=== PATIENT | female | born 1975 | race African-American/Black ===

== ENCOUNTER 2017-12-15 09:35 | Inpatient (IN) | payer MEDICAID ==
[~2017-12-15] VITALS: Ht 149.9 cm; Wt 100.0 kg
[2017-12-15] MEDS ORDERED: SODIUM CHLORIDE 0.9% 1,000 ML IV ONE (09:47)
[2017-12-15 10:01] LABS: BASOPHILS % 1.3 % (0.0-2.0); EOSINOPHILS % 4.1 % (0.0-5.0); HEMATOCRIT. 43.2 % (36.0-48.0); HEMOGLOBIN. 14.5 g/dL (12.0-16.0); LYMPHOCYTES % 51.6 % (20.0-50.0); MEAN CORPUSCULAR HEMOGLOBIN 30.5 pg (28.0-32.0); MEAN CORPUSCULAR VOLUME 91.2 fL (81.0-99.0); MEAN PLATELET VOLUME 10.2 fl (7.4-10.4); MONOCYTES % 8.7 % (2.0-8.0); NEUTROPHILS % 34.3 % (40.0-76.0); PLATELET 220 x1000/uL (130-400); RED BLOOD CELL COUNT 4.74 mill/uL (4.2-5.4)
[2017-12-15 10:10] LABS: INR 0.9; PARTIAL THROMBOPLASTIN TIME 26.1 sec (23.4-31.0); PROTHROMBIN TIME 9.4 sec (9.1-11.1)
[2017-12-15 10:11] LABS: HCG SCREEN NEGATIVE
[2017-12-15 10:40] LABS: CHLORIDE 108 mEq/L (98-107); CREATINE KINASE 114 IU/L (26-192); LDL CHOLESTEROL 118 mg/dL (5-100)
[2017-12-15 10:41] LABS: ETHANOL BLOOD < 10 mg/dL
[2017-12-15] MEDS ORDERED: ASPIRIN 81MG TABLET PO ONE (10:45)
[2017-12-15] MEDS ORDERED: GADOBENATE DIMEGLUMINE 529 MG/ML 10ML IV ONE (11:31)
[2017-12-15] MEDS ORDERED: ONDANSETRON HCL 4MG/2ML INJ IV ONE (13:00)
[2017-12-15] MEDS ORDERED: MORPHINE SULFATE 4 MG/ML CPJ (NOT FOR IM USE) IV ONE (13:00)
[2017-12-15] MEDS ORDERED: GUAIFENESIN 200MG/10ML SUGAR FREE UDC PO PRN (15:30)
[2017-12-15] MEDS ORDERED: MAGNESIUM/ALUMINUM HYDROXIDE/SIMETHICONE 30ML UDC PO PRN (15:30)
[2017-12-15] MEDS ORDERED: CLONIDINE 0.1MG TABLET PO PRN (15:30)
[2017-12-15] MEDS ORDERED: DOCUSATE SODIUM 100MG CAPSULE PO PRN (15:30)
[2017-12-15] MEDS ORDERED: ACETAMINOPHEN 325MG TABLET PO PRN (15:30)
[2017-12-15] MEDS ORDERED: IPRATROPIUM/ALBUTEROL 0.5-3(2.5)MG/3ML NEB INH PRN (15:30)
[2017-12-15 16:00] VITALS: BP 141/97
[2017-12-15 16:55] VITALS: BP 141/97
[2017-12-15] MEDS: HYDROCODONE/ACETAMINOPHEN 5/325MG TABLET PO PRN ×2 (18:13→22:57)
[2017-12-15 20:00] VITALS: BP 120/64
[2017-12-15] MEDS ORDERED: ATORVASTATIN CALCIUM 40MG TABLET PO SCH (21:00)
[2017-12-16] VITALS: BP 141/78
[2017-12-16] MEDS: HYDROCODONE/ACETAMINOPHEN 5/325MG TABLET PO PRN (03:19)
[2017-12-16 06:35] LABS: BASOPHILS % 0.5 % (0.0-2.0); HEMATOCRIT. 40.2 % (36.0-48.0); HEMOGLOBIN. 13.4 g/dL (12.0-16.0); LYMPHOCYTES % 46.3 % (20.0-50.0); MEAN CORPUSCULAR HEMOGLOBIN 30.4 pg (28.0-32.0); MEAN CORPUSCULAR VOLUME 91.2 fL (81.0-99.0); MEAN PLATELET VOLUME 10.6 fl (7.4-10.4); MONOCYTES % 7.6 % (2.0-8.0); NEUTROPHILS % 42.6 % (40.0-76.0); PLATELET 187 x1000/uL (130-400); RED BLOOD CELL COUNT 4.41 mill/uL (4.2-5.4); RED CELL DISTRIBUTION WIDTH 15.2 % (11.6-14.6)
[2017-12-16 06:43] LABS: CHLORIDE 108 mEq/L (98-107)
[2017-12-16 07:07] LABS: HDL CHOLESTEROL 38 mg/dL (40-59); LDL CHOLESTEROL 111 mg/dL (5-100); T4 FREE 0.89 ng/dL (0.76-1.46)
[2017-12-16 08:00] VITALS: BP 126/89
[2017-12-16] MEDS ORDERED: MORPHINE SULFATE 4 MG/ML CPJ (NOT FOR IM USE) IV PRN (09:00)
[2017-12-16] MEDS ORDERED: HYDROCODONE/ACETAMINOPHEN 10/325MG TABLET PO PRN (09:00)
[2017-12-16 12:00] VITALS: BP 127/69
[2017-12-16] MEDS ORDERED: MUPIROCIN 2% OINT 22GM TOP SCH (14:00)
[2017-12-16 16:00] VITALS: BP 148/77
[2017-12-16 16:07] VITALS: BP 148/77
[2017-12-16] MEDS ORDERED: CITALOPRAM HYDROBROMIDE 10MG TABLET PO SCH (17:00)
== END 2017-12-16 16:30 | disposition home or self-care (01) | DRG 756 ==
LOC: ER 09:35 → 5WST 13:15 → ENRESERV 13:15
PROVIDERS: ADMIT Internal Medicine; ATTEND Internal Medicine
DX: F41.9 Anxiety disorder, unspecified (principal); E66.01 Morbid (severe) obesity due to excess calories; E78.5 Hyperlipidemia, unspecified; M50.31 Other cervical disc degeneration, high cervical region; M47.812 Spondylosis without myelopathy or radiculopathy, cervical region; M79.18 Myalgia, other site; Z68.41 Body mass index [BMI] 40.0-44.9, adult; Z87.891 Personal history of nicotine dependence
CPT/HCPCS: 36415; 70553; 71045; 72156; 80061; 82550; 82962; 83721; 83880; 84439; 84443; 84481; 84484; 84703; 93005; 93970; 96361; 96374; 96375; 99291; A9577; G0482; J2270; J2405; J7030

== ENCOUNTER 2021-10-25 14:08 | Emergency (ER) | payer BC, MEDICAID ==
[~2021-10-25] VITALS: Ht 149.9 cm; Wt 102.0 kg
[~2021-10-25 14:08] MED LIST: GABA-532 MT; NAPR-681 MT
[2021-10-25 15:52] VITALS: BP 153/89
[2021-10-25] MEDS ORDERED: KETOROLAC 60MG/2ML VIAL IM ONE (16:15)
== END 2021-10-25 17:13 | disposition home or self-care (01) ==
LOC: ER 14:08
DX: M79.642 Pain in left hand (principal); Z98.890 Other specified postprocedural states
CPT/HCPCS: 73130; 99283

== ENCOUNTER 2021-12-06 07:12 | Inpatient (IN) | payer BC, MEDICAID ==
[~2021-12-06] VITALS: Ht 149.9 cm; Wt 112.5 kg
[2021-12-06] MEDS ORDERED: MAGNESIUM/ALUMINUM HYDROXIDE/SIMETHICONE 30ML UDC PO ONE (07:45)
[2021-12-06 09:08] LABS: BASOPHILS % 0.8 % (0.0-2.0); EOSINOPHILS % 0.6 % (0.0-5.0); HEMATOCRIT. 43.8 % (36.0-48.0); LYMPHOCYTES % 24.5 % (20.0-50.0); MEAN CORPUSCULAR HEMOGLOBIN 31.4 pg (28.0-32.0); MEAN PLATELET VOLUME 9.9 fl (7.4-10.4); MONOCYTES % 7.7 % (2.0-8.0); NEUTROPHILS % 66.4 % (40.0-76.0); PLATELET 186 x1000/uL (130-400); RED BLOOD CELL COUNT 4.76 mill/uL (4.2-5.4); RED CELL DISTRIBUTION WIDTH 15.8 % (11.6-14.6)
[2021-12-06 09:16] LABS: CHLORIDE 103 mEq/L (98-107)
[2021-12-06] MEDS ORDERED: ONDANSETRON HCL 4MG/2ML INJ IV STA ×2 (09:43→14:36)
[2021-12-06] MEDS ORDERED: MORPHINE SULFATE 4 MG/ML CPJ (NOT FOR IM USE) IV STA ×2 (09:43→14:36)
[2021-12-06 13:34] LABS: HCG SCREEN NEGATIVE
[2021-12-06] MEDS ORDERED: IBUP-2029 MT (13:59)
[2021-12-06] MEDS ORDERED: ACETAMINOPHEN WITH CODEINE 300/30MG TABLET PO ONE (14:00)
[2021-12-06] MEDS ORDERED: IOHEXOL-350 100 ML BOTTLE ONE (14:30)
[2021-12-06] MEDS ORDERED: ENOXAPARIN 100MG/ML SYR SUBCUT ONE (14:45)
[2021-12-06 18:00] VITALS: BP 181/104
[2021-12-06] MEDS ORDERED: CLONIDINE 0.1MG TABLET PO PRN (18:30)
[2021-12-06] MEDS: HYDROCODONE/ACETAMINOPHEN 10/325MG TABLET PO PRN (18:37)
[2021-12-06 20:00] VITALS: BP 127/79
[2021-12-06 23:43] VITALS: BP 181/82
[2021-12-07] VITALS: BP 146/94
[2021-12-07] MEDS: HYDROCODONE/ACETAMINOPHEN 10/325MG TABLET PO PRN ×3 (00:39→21:26)
[2021-12-07 04:00] VITALS: BP 111/71
[2021-12-07] MEDS: ENOXAPARIN 120MG/0.8ML SYR SUBCUT SCH ×2 (05:10→17:44)
[2021-12-07 08:00] VITALS: BP 147/99
[2021-12-07] MEDS: AMLODIPINE 10MG TABLET PO SCH (09:08)
[2021-12-07] MEDS ORDERED: APIX5TAB MT (11:46)
[2021-12-07 12:00] VITALS: BP 141/76
[2021-12-07] MEDS: KETOROLAC 30MG/ML VIAL IV PRN (12:05)
[2021-12-07 16:00] VITALS: BP 135/86
[2021-12-07 20:00] VITALS: BP 137/72
[2021-12-08] VITALS: BP 122/74
[2021-12-08 04:00] VITALS: BP 115/65
[2021-12-08] MEDS ORDERED: ACETAMINOPHEN 325MG TABLET PO PRN (04:30)
[2021-12-08] MEDS: ENOXAPARIN 120MG/0.8ML SYR SUBCUT SCH (05:23)
[2021-12-08] MEDS: AMLODIPINE 10MG TABLET PO SCH (09:32)
[2021-12-08] MEDS: KETOROLAC 30MG/ML VIAL IV PRN (10:36)
[2021-12-08 13:50] VITALS: BP 133/73
[2021-12-08] MEDS ORDERED: XAR15 MT (17:06)
== END 2021-12-08 16:00 | disposition home or self-care (01) | DRG 175 ==
LOC: ER 07:12 → 7EST 16:17 → EDBEDREQTM 16:21 → EDBEDREQ 16:21
PROVIDERS: ADMIT Internal Medicine; ATTEND Internal Medicine
DX: I26.99 Other pulmonary embolism without acute cor pulmonale (principal); J96.01 Acute respiratory failure with hypoxia; E44.1 Mild protein-calorie malnutrition; Z68.43 Body mass index [BMI] 50.0-59.9, adult; E66.9 Obesity, unspecified; M47.812 Spondylosis without myelopathy or radiculopathy, cervical region; F17.210 Nicotine dependence, cigarettes, uncomplicated; Z86.711 Personal history of pulmonary embolism; Z79.899 Other long term (current) drug therapy
CPT/HCPCS: 36415; 71045; 71275; 80053; 83880; 84484; 84703; 85025; 85379; 93005; 93306; 93970; 99291; J1650; J1885; J2270; J2405; Q9967